=== PATIENT | male | born 1990 | race Caucasian/White ===

== ENCOUNTER 2016-11-12 20:30 | Observation (INO) | payer OTHER ==
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
[2016-11-13 04:20] VITALS: RESP 16
[2016-11-13 06:09] VITALS: BP 115/68; PULSE 88; TEMP 98; O2SAT 97
== END 2016-11-13 05:40 | disposition home or self-care (01) ==
LOC: C.ER 20:30 → C.9OBSV 21:52 → UNDOADMOB 22:01
PROVIDERS: ADMIT Emergency Medicine; ATTEND Emergency Medicine
DX: F10.120 Alcohol abuse with intoxication, uncomplicated (principal); Y90.9 Presence of alcohol in blood, level not specified; R46.89 Other symptoms and signs involving appearance and behavior; Z78.1 Physical restraint status
CPT/HCPCS: 96372; 99285; G0378; J1630; J2060